=== PATIENT | female | born 1990 | race American Indian/Alaskan Native ===

== ENCOUNTER 2016-03-09 13:43 | Outpatient (CLI) | payer SELFPAY ==
[2016-03-09] MEDS ORDERED: LACTATED RINGERS 1,000 ML IV SCH (15:00)
[2016-03-09 17:11] VITALS: BP 103/64
--- NOTE | 2016-03-10 10:03 | Ultrasound Report ---
OB LIMITED: TECHNIQUE: Transabdominal ultrasound with Doppler interrogation. Gestation: de leon Position: cephalic Amniotic Fluid: WNL (7-24 cm) FABIOLA = 9.6 cm Heart Rate: 135 BPM
== END 2016-03-09 18:00 | disposition home or self-care (01) ==
LOC: TRG 13:43
PROVIDERS: ATTEND Obstetrics & Gynecology
DX: O77.9 Labor and delivery complicated by fetal stress, unspecified (principal); O47.9 False labor, unspecified; Z3A.00 Weeks of gestation of pregnancy not specified
CPT/HCPCS: 59025; 76815

== ENCOUNTER 2016-03-11 00:36 | Inpatient (IN) | payer SELFPAY ==
--- NOTE | 2016-03-11 01:52 | History and Physical Report ---
History of Present Illness Date of examination: 03/11/16 Date of admission: 03/11/16 Chief complaint: contractions History of present illness: Pt presents to triage in active labor. Pt had care in [facility] and had records that were presented a previous triage visit but are not scanned into her chart at this time. She did not establish care since being seen in triage for now three visits. 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: abnormal PAP smear - Obstetrical History Expected Date of Delivery: 03/12/16 Actual Gestation: 39 Week(s) 6 Day(s) : 1 Medications and Allergies Allergies Allergy/AdvReac Type Severity Reaction Status Date / Time latex Allergy Rash Verified 03/09/16 14:26 Home Medications Medication Instructions Recorded Confirmed Last Taken Type Pnv95/Ferrous Fumarate/FA 1 each PO DAILY 03/09/16 03/09/16 Unknown History [Prenavite Tablet] Active Meds: Active Medications Lactated Ringer's (Lactated Ringers) 1,000 mls @ 125 mls/hr IV DIRECT RISA Review of Systems All systems: negative - Vital Signs Vital signs: Vital Signs Pulse BP 114 H 125/79 03/11/16 00:51 03/11/16 00:51 Temp Pulse Resp BP Pulse Ox 94 H 125/79 97 03/11/16 01:44 03/11/16 00:51 03/11/16 01:44 Results All other labs normal. Assessment and Plan - Patient Problems (1) 39 weeks gestation of Current Visit: Yes Status: Acute (2) Active labor at term Current Visit: Yes Status: Acute Plan to address problem: -admit -expectant management -antibx for unknown GBS status -anticipate vaginal delivery
[2016-03-11 01:53] LABS: Basophils % (Auto) 0.2 % (0.0-1.8); Eosinophils % (Auto) 0.7 % (0.0-4.3); Hematocrit 34.4 % (30.3-42.9); Hemoglobin 11.5 gm/dl (10.1-14.3); Mean Corpuscular HGB Conc 33 % (30-34); Mean Corpuscular Hemoglobin 27 pg (28-32); Mean Corpuscular Volume 81 fl (79-97); Platelet Count 297 K/mm3 (140-440); Red Blood Count 4.24 M/mm3 (3.65-5.03); Red Cell Distribution Width 14.2 % (13.2-15.2); White Blood Count 10.6 K/mm3 (4.5-11.0)
[2016-03-11] MEDS ORDERED: POLYCILLIN/NS 2 GM/100 ML 100 ML IV ONE (01:54)
[2016-03-11] MEDS ORDERED: BRETHINE SUB-Q PRN (01:54)
[2016-03-11] MEDS ORDERED: BRETHINE IVP PRN (01:54)
[2016-03-11] MEDS ORDERED: ePHEDrine SULFATE IV PRN ×2 (01:54→04:09)
[2016-03-11] MEDS ORDERED: SUBLIMAZE IV PRN (01:54)
[2016-03-11] MEDS ORDERED: MINERAL OIL PO PRN (01:54)
[2016-03-11] MEDS ORDERED: LACTATED RINGERS 1,000 ML IV SCH (02:00)
[2016-03-11] MEDS ORDERED: PITOCin/NS 20 UNIT/1000ML DRIP 1,000 ML IV SCH (02:00)
--- NOTE | 2016-03-11 02:07 | Progress Note ---
Assessment and Plan - Patient Problems (1) 39 weeks gestation of Current Visit: Yes Status: Acute (2) Active labor at term Current Visit: Yes Status: Acute Plan to address problem: -admit -expectant management -antibx for unknown GBS status -anticipate vaginal delivery Subjective - Subjective Date of service: 03/11/16 Principal diagnosis: 39 weeks in active labor Interval history: Pt c/o contraction pain and desires pain meds at this time. plan of care d/w pt she expressed understanding and questions were addressed and answered. Patient reports: movement normal, contractions, no loss of fluid, no vaginal bleeding Objective - Vital Signs Vital Signs: Vital Signs - 12hr 03/11/16 03/11/16 03/11/16 00:51 00:52 00:57 Pulse Rate 114 H 110 H 106 H Blood Pressure 125/79 O2 Sat by Pulse 99 99 Oximetry 03/11/16 03/11/16 03/11/16 01:02 01:07 01:44 Pulse Rate 111 H 110 H 94 H Blood Pressure O2 Sat by Pulse 95 99 97 Oximetry 03/11/16 03/11/16 03/11/16 01:49 01:54 01:59 Pulse Rate 103 H 97 H 105 H Blood Pressure O2 Sat by Pulse 100 99 100 Oximetry - Exam FHR: category 1 Cervical Dilatation: 6 (bbow) Cervical Effacement Percentage: 100 station: -2 Uterine Contraction Pattern: Regular Uterine Contraction Intensity: Moderate Extremities: normal - Labs Labs: Abnormal Labs 03/11/16 01:30 MCH 27 L Kershaw % (Auto) 10.0 H Kershaw # 1.1 H Laboratory Results - last 24 hr 03/11/16 01:30 WBC 10.6 RBC 4.24 Hgb 11.5 Hct 34.4 MCV 81 MCH 27 L MCHC 33 RDW 14.2 Plt Count 297 Lymph % (Auto) 19.6 Kershaw % (Auto) 10.0 H Eos % (Auto) 0.7 Baso % (Auto) 0.2 Lymph # 2.1 Kershaw # 1.1 H Eos # 0.1 Baso # 0.0 Seg Neutrophils % 69.5 Seg Neutrophils # 7.4
[2016-03-11 02:16] LABS: HIV-1 Antigen p24 Non React (Non React); HIVR-1/2 Ab Non React (Non React)
[2016-03-11] MEDS: LACTATED RINGERS 1,000 ML IV SCH ×4 (02:30→09:05)
[2016-03-11] MEDS ORDERED: ePHEDrine SULFATE ONE (03:25)
[2016-03-11] MEDS ORDERED: NARCAN 2 MG/2 ML IV PRN (04:09)
--- NOTE | 2016-03-11 04:09 | Anesthesia Consultation ---
Anesthesia Consult and Med Hx Date of service: 03/11/16 - Airway ROM Head & Neck: Adequate Mental/Hyoid Distance: Adequate Intubation Access Assessment: Probably Good - Pre-Operative Health Status ASA Pre-Surgery Classification: ASA2, Emergency Proposed Anesthetic Plan: Epidural, Spinal - Pre-Anesthesia Comment Pre-Anesthesia Comments: Rash with latex condoms. No problem with baloons. - Pulmonary Hx Asthma: No COPD: No Hx Pneumonia: No - Cardiovascular System Hx Hypertension: No - Central Nervous System Hx Seizures: No Hx Psychiatric Problems: No - Endocrine Hx Renal Disease: No Hx End Stage Renal Disease: No Hx Hypothyroidism: No Hx Hyperthyroidism: No - Hematic Hx Anemia: No Hx Sickle Cell Disease: No - Other Systems Hx Alcohol Use: No
[2016-03-11] MEDS ORDERED: fentaNYL-BUPIV 2 MCG/ML-0.125% 100 ML EPIDURAL SCH (05:00)
[2016-03-11] MEDS ORDERED: POLYCILLIN/NS 1 GM/50 ML 50 ML IV SCH (06:00)
[2016-03-11] MEDS ORDERED: PITOCin/NS 30 UNIT/500ML 500 ML IV SCH (09:00)
[2016-03-11] MEDS ORDERED: XYLOCAINE 2% INFILTRATI ONE ×2 (09:29→09:30)
[2016-03-11] MEDS ORDERED: BENADRYL PO PRN (10:05)
[2016-03-11] MEDS ORDERED: TUCKS PAD TP PRN (10:05)
[2016-03-11] MEDS ORDERED: DERMOPLAST TP PRN (10:05)
--- NOTE | 2016-03-11 10:14 | Procedure Note ---
OB Delivery Note - Delivery Date of Delivery: 03/11/16 Surgeon: SHANIA BIRD Estimated blood loss: 500cc - Vaginal Delivery position: OA Intrapartum events: no care, mult.variable deceleratio Delivery induction: none Delivery augmentation: pitocin Delivery monitor: external FHT, external uterine, internal FHT Route of delivery: Delivery placenta: spontaneous Delivery cord: nuchal cord Episiotomy: midline (pt unable to push baby out, epis cut to facilitate delivery without large lac, which was impending) Delivery laceration: 2nd degree Delivery repair: vicryl Anesthesia: local, epidural - Infant A at 1 minute: 7 (7#10 oz) at 5 minutes: 8 Gender: Female (7# 10 oz)
[2016-03-11] MEDS ORDERED: DULCOLAX PR PRN (11:00)
[2016-03-11] MEDS ORDERED: PHENERGAN PO PRN (11:00)
[2016-03-11] MEDS ORDERED: NORCO 5/325 PO PRN (11:00)
[2016-03-11] MEDS ORDERED: MILK OF MAGNESIA PO PRN (11:00)
[2016-03-11] MEDS ORDERED: TYLENOL PO PRN (11:00)
[2016-03-11] MEDS ORDERED: PHENERGAN PR PRN (11:00)
[2016-03-11] MEDS ORDERED: LANSINOH TP PRN (11:00)
[2016-03-11] MEDS ORDERED: SODIUM CHLORIDE FLUSH SYRINGE 10 ML IV NR (11:00)
[2016-03-11] MEDS ORDERED: ZOFRAN IV PRN (11:00)
[2016-03-11] MEDS ORDERED: FLUARIX QUAD 2016-2017(36 MOS+) IM ONE (12:00)
[2016-03-11] MEDS: MOTRIN PO SCH ×2 (13:48→22:53)
[2016-03-11] MEDS: COLACE PO SCH (22:53)
[2016-03-11 23:30] LABS: Hematocrit 26.2 % (30.3-42.9); Hemoglobin 8.7 gm/dl (10.1-14.3)
[2016-03-12] MEDS: MOTRIN PO SCH ×3 (05:02→12:47)
[2016-03-12] MEDS ORDERED: BOOSTRIX IM ONE (06:00)
--- NOTE | 2016-03-12 06:45 | Discharge Summary ---
Providers - Providers Date of Admission: 03/11/16 02:24 Date of discharge: 03/12/16 (pt agrees with d/c) Attending physician: SHERIE BROWN 03/11/16 Consult to Case Management [CONS] Routine Services Needed at Discharge: [phone] Directory Assistance Operator Additional Physician Instructions: emergency Medicaid Primary care physician: SHREIE BROWN Hospitalization Reason for admission: active labor Delivery: Episiotomy: midline Laceration: none Incision: normal, dry, intact Other procedures: none complications: none Discharge diagnosis: IUP at term delivered [place] baby: female Hospital course: Uncomplicated vaginal delivery Pt w/o complaint this AM VSS FF below umb Lochia small Perineum slight swelling intact H&H 8.7/26.2 drop related to blood loss @ delivery P w/o s/sx of anemia P : d/c today with instructions RTO 4-6 weeks PP care RX iron, colace, and motrin All questions addressed. Condition at discharge: Good Disposition: DISCHARGED TO HOME OR SELFCARE - Discharge Diagnoses (1) Vaginal delivery Status: Acute Comment: RTO 4-6 weeks PP care Plan - Provider Discharge Summary Activity: routine, no sex for 6 weeks, no heavy lifting 4 weeks, no strenuous exercise Diet: routine Instructions: routine Additional instructions: [] Smoking cessation referral if applicable(refer to patient education folder for contact #) [] Refer to [facility] Booklet Call your doctor immediately for: * Fever > 100.5 * Heavy vaginal bleeding ( >1 pad per hour) * Severe persistent headache * Shortness of breath * Reddened, hot, painful area to leg or breast * Drainage or odor from incision. * Keep incision clean and dry at all times and follow doctor's instructions regarding bathing/showering - Follow up plan Follow up: SHERIE BROWN MD [Primary Care Provider] - 04/11/16 (Congratulations! Please call [phone] to schedule your visit in 4 weeks. Take medication as prescribed. Call with concerns.)
[2016-03-12] MEDS: COLACE PO SCH (12:49)
[2016-03-12 16:33] VITALS: BP 102/60
== END 2016-03-12 16:39 | disposition home or self-care (01) | DRG 775 ==
LOC: TRG 00:36 → LD 02:24 → TRG 02:24 → OB 11:49
PROVIDERS: ADMIT Obstetrics & Gynecology; ATTEND Obstetrics & Gynecology
PROC: 10E0XZZ Delivery of Products of Conception, External Approach (ICD-10-PCS; principal; 2016-03-11)
PROC: 0KQM0ZZ Repair Perineum Muscle, Open Approach (ICD-10-PCS; 2016-03-11)
PROC: 0W8NXZZ Division of Female Perineum, External Approach (ICD-10-PCS; 2016-03-11)
PROC: 3E0S3BZ Introduction of Anesthetic Agent into Epidural Space, Percutaneous Approach (ICD-10-PCS; 2016-03-11)
PROC: 00HU33Z Insertion of Infusion Device into Spinal Canal, Percutaneous Approach (ICD-10-PCS; 2016-03-11)
DX: O76 Abnormality in fetal heart rate and rhythm complicating labor and delivery (principal); O70.1 Second degree perineal laceration during delivery; Z3A.39 39 weeks gestation of pregnancy; Z37.0 Single live birth; Z91.040 Latex allergy status
CPT/HCPCS: 36415; 85014; 85018; 85025; 86592; 86706; 86762; 86803; 86850; 86900; 86901; 87806; 90686; 90715; 99211; G0463; J0290; J2590; J3010; J7120